=== PATIENT | male | born 1980 | race African-American/Black ===

== ENCOUNTER 2017-07-24 11:17 | Emergency (ER) | payer BC ==
[~2017-07-24] VITALS: Ht 193 cm; Wt 163.3 kg
[2017-07-24 11:25] VITALS: BP 152/97
[2017-07-24] MEDS ORDERED: NORVASC 5 MG TAB5 MG PO (11:31)
[2017-07-24] MEDS ORDERED: COZAAR 25 MG TA25 M1 PO (11:31)
== END 2017-07-24 11:59 | disposition home or self-care (01) ==
LOC: ER 11:17
DX: S49.92XA Unspecified injury of left shoulder and upper arm, initial encounter (principal); I10 Essential (primary) hypertension; X58.XXXA Exposure to other specified factors, initial encounter; Y93.89 Activity, other specified; Y92.89 Other specified places as the place of occurrence of the external cause; Y99.8 Other external cause status

== ENCOUNTER 2020-06-14 08:13 | Emergency (ER) | payer BC ==
[~2020-06-14] VITALS: Ht 193 cm; Wt 167.8 kg
[~2020-06-14 08:13] MED LIST: COZAAR 25 MG TA25 M1 PO; NORVASC 5 MG TAB5 MG PO
[2020-06-14] MEDS ORDERED: METFORMIN HCL500 M3 PO (08:20)
[2020-06-14] MEDS ORDERED: HYDROCHLOROTHIA25 M1 PO (08:20)
[2020-06-14] MEDS ORDERED: COZAAR 25 MG TA25 M1 PO (08:20)
[2020-06-14 08:50] LABS: ABSOLUTE NEUTROPHILS 4.7 thou/uL (1.4-8.2); ANION GAP 10 mmol/L (7-16); BASOPHILS 0.5 % (0.0-2.0); BUN 12 mg/dL (7-18); CALCIUM 9.1 mg/dL (8.5-10.1); CHLORIDE 103 mmol/L (98-107); CO2 29 mmol/L (21-32); EOSINOPHILS 1.1 % (0.0-3.0); GLUCOSE 132 mg/dL (74-106); HEMATOCRIT 40.5 % (42.0-52.0); HEMOGLOBIN 13.6 gm/dL (14.0-18.0); LYMPHOCYTES 17.5 % (24.0-44.0); MCH 28.2 pg (26.0-34.0); MCHC 33.5 g/dL (28.0-37.0); MCV 84.1 fL (80.0-100.0); MONOCYTES 10.1 % (1.0-8.0); PLATELET COUNT 276 thou/uL (150-400); POLYS 70.8 % (36.0-66.0); POTASSIUM 3.2 mmol/L (3.5-5.1); RBC 4.81 mil/uL (4.50-6.00); RDW 14.4 % (10.5-14.5); SODIUM 142 mmol/L (136-145); WBC 6.6 thou/uL (4.0-11.0)
[2020-06-14 09:00] LABS: ALBUMIN 4.1 g/dL (3.4-5.0); SGOT 23 U/L (15-37); SGPT 51 U/L (16-63); TOTAL BILIRUBIN 0.4 mg/dL (0.2-1.0); TOTAL PROTEIN 8.2 g/dL (6.4-8.2); TROPONIN-I <0.06 ng/mL (<0.06)
--- NOTE | 2020-06-14 09:44 | EKG ---
[place] [address] [facility] [place] [address] ELECTROCARDIOGRAM REPORT Name: RUDI SCANLON Room #: REG EDGARDO George#: [id number] Admission: 06/14/20 Attend Phys: Discharge: Date of : 80 Report #: [id number] [facility] ED Test Date: 2020-06-14 Test Time: 08:22:05 Pat Name: RUDI SCANLON Department: Room: Gender: [employer] Attendant: kitty : 1980 Requested By: Cruz Mayorga Order Number: [id number] MD: Antoine Do Measurements Intervals [place] Rate: 87 P: 24 WY: 179 QRS: 20 QRSD: 93 T: 17 QT: 366 QTc: 441 Interpretive Statements Sinus rhythm Nonspecific T wave abnormality No previous ECG available for comparison Electronically Signed On 06-14-2020 9:43:57 CDT by Antoine Do [email or web address] <ELECTRONICALLY SIGNED> By: Antoine Do MD, [facility] 06/14/20 0943 0822 0822 Antoine Do MD, FACC /EPI
[2020-06-14] MEDS ORDERED: POTASSIUM20 PO (10:25)
[2020-06-14 10:34] VITALS: BP 132/72
== END 2020-06-14 10:35 | disposition home or self-care (01) ==
LOC: ER 08:13
PROVIDERS: Emergency Medicine
DX: R07.89 Other chest pain (principal); E66.9 Obesity, unspecified; I10 Essential (primary) hypertension; E11.9 Type 2 diabetes mellitus without complications; Z79.899 Other long term (current) drug therapy

== ENCOUNTER → 2020-07-29 | Outpatient (CLI) | payer BC ==
[~2020-07-29] MED LIST changes: +HYDROCHLOROTHIA25 M1 PO; +METFORMIN HCL500 M3 PO; +POTASSIUM20 PO
== END ==
LOC: SJCVCIMAG 09:44
PROVIDERS: ATTEND Internal Medicine
DX: I11.9 Hypertensive heart disease without heart failure (principal); R01.1 Cardiac murmur, unspecified; R06.00 Dyspnea, unspecified; E11.9 Type 2 diabetes mellitus without complications; E78.5 Hyperlipidemia, unspecified